=== PATIENT | male | born 2000 | race Caucasian/White ===

== ENCOUNTER 2025-05-15 01:52 | Emergency (ER) | payer MEDICAID ==
[~2025-05-15] VITALS: Ht 185.4 cm; Wt 84.0 kg
[2025-05-15 01:55] VITALS: O2SAT 96
[2025-05-15 02:01] VITALS: BP 117/77; PULSE 90; RESP 18; TEMP 36.7; O2SAT 97
== END 2025-05-15 04:22 | disposition left against medical advice (07) ==
LOC: ER 01:52
DX: M79.602 Pain in left arm (principal); Z53.21 Procedure and treatment not carried out due to patient leaving prior to being seen by health care provider